=== PATIENT | female | born 1950 | race Caucasian/White ===

== ENCOUNTER 2019-01-22 11:02 | Observation (INO) | payer MEDICARE ==
[~2019-01-22] VITALS: Ht 162.6 cm; Wt 55.5 kg
[~2019-01-22 11:02] MED LIST: BABY ASPIRIN81 MG OR; CARBOPLATIN IV; CIPROFLOXACN500 MG PO; COUMADIN2.5 MG PO; COUMADIN5 MG PO; DIGOXIN0.125 MG PO; ETOPOSIDE IV; FRAGMIN SC; JANTOVEN5 MG; JANTOVEN5 MG PO; LEVEMIR FLEXPEN SC; LEVEMIR SC; LORTAB5 PO; METOPROL TAR100 MG PO; NEULASTA6 MG/0.6 M SC; PROCRIT2000 MG/ML IJ; TRADJENTA5 MG OR; ZOFRAN4 MG/TAB PO
--- NOTE | 2019-01-22 11:20 | NUR ---
PT TO ROOM WITH A STEADY GAIT.
--- NOTE | 2019-01-22 11:40 | NUR ---
ASSISTED MD WITH RECTAL EXAM. PT TOLERATED WELL. ABD SOFT, NON TENDER UPON PALPATION. BS HYPERACTIVE X 4. IV INITIATED AND LABS COLLECTED. PT AWARE OF PLAN OF CARE AND WAIT TIME. CALL COSTA WITHIN REACH.
--- NOTE | 2019-01-22 12:00 | NUR ---
PT BIN TRIPPER OPERATOR COSTA REQUESTING A WARM BLANKET. PT DENIES ANY NEEDS AT THIS TIME.
[2019-01-22 12:14] LABS: HEMATOCRIT 36.4 % (37.0-47.0); HEMOGLOBIN 12.4 g/dl (12.0-16.0); IMMATURE GRANULOCYTES 0.5 % (0.0-5.0); MEAN CELL VOLUME 94.1 fL CALC (80.0-100.0); MEAN CORPUSCULAR HGB CONC 34.1 g/L CALC (32.0-36.0); NEUT# 6.54 thou/uL (2.00-7.15); RED BLOOD COUNT 3.87 mill/uL (4.20-5.60); RED CELL DISTRI WIDTH 15.6 % (11.5-15.5)
--- NOTE | 2019-01-22 12:15 | NUR ---
+3 PITTING EDEMA NOTED TO BILATERAL LOWER EXTREMITIES AND FEET. PER PT THAT IS NORMAL FOR HER AT THIS TIME. PT ALSO REPORTS SOME WEEPING OF FLUIDS TO LEFT LOWER EXTREMITY.
[2019-01-22 12:26] LABS: ALBUMIN 3.6 g/dL (3.2-5.0); CREATININE 1.3 mg/dL (0.5-1.0); TOTAL PROTEIN 6.6 g/dL (6.3-8.2)
[2019-01-22 12:43] LABS: INTERNATIONAL NORMALIZED RATIO 1.1 RATIO (0.7-1.3); PROTHROMBIN TIME 11.5 SECONDS (9.0-12.5)
--- NOTE | 2019-01-22 13:00 | NUR ---
IV FLUIDS INFUSING WITH NO DIFFICULTY. PT READHUSTED FOR PT COMFORT. PT AWARE OF NEED FOR STOOL SAMPLE. CALL COSTA WITHIN REACH.
[2019-01-22] MEDS ORDERED: LOMOTIL2.5 MG PO (13:34)
[2019-01-22] MEDS ORDERED: BENTYL10 MG PO (13:34)
[2019-01-22] MEDS ORDERED: K-DUR/KLOR-CON20 MEQ PO (13:34)
--- NOTE | 2019-01-22 13:45 | NUR ---
PT'S BP 91/52. MD NOTIFIED. PT REQUESTED TO GO HOME. MD AT BEDSIDE AND PT AGREED TO HAVE ANOTHER BAG OF SALINE AND DISCHARGE.
--- NOTE | 2019-01-22 14:30 | NUR ---
IV FLUIDS INFUSING WITH NO DIFFICULTY, IV SITE FREE FROM REDNESS/EDEMA. BILATERAL LS REMAIN CLEAR. PT DENIES ANY NEEDS, CALL COSTA WITHIN REACH.
--- NOTE | 2019-01-22 15:25 | NUR ---
MD AT BEDSIDE TO DISCUSS RESULTS AND PT CONTINUES TO REQUEST TO GO HOME.
--- NOTE | 2019-01-22 15:30 | NUR ---
PT DRESSED WITH MINIMAL ASSIST AND PLACED IN WHEELCHAIR. BP 98/53.
--- NOTE | 2019-01-22 15:45 | NUR ---
DISCHARGE INSTRUCTIONS DISCUSSED WITH PT. PT VERBALIZED UNDERSTANDING WITH NO QUESTIONS VOICED. PT AWARE OF RX TO BE PICKED UP AT PHARMACY. UPON SIGNING DISCHARGE PAPERWORK, PT BECAME CONFUSED AND WAS UNABLE TO WRITE THE DATE AND WROTE 3 SEPERATES DATES. UPON ASKING PT QUESTIONS PT WAS ALERT TO PERSON AND PLACE AND WAS APHASIC. MD AND CHARGE NURSE AT BEDSIDE TO REEVALUATE. PT NOTIFIED OF NEED TO STAY IN ED FOR FUTHER TESTING DUE TO THE CONFUSION. PT REFUSED STATING I NEED TO GO HOME. PT PLACED BACK IN BED AND VITALS OBTAINED. PERRLA AND AT A 2. GENERALIZED WEAKNESS NOTED TO BILATERAL LOWER EXTREMITIES. PT ABLE TO IDENTIFY ALL OBJECTS BUT UPON CONVERSING SHE REMAINED APHASIC.
--- NOTE | 2019-01-22 16:20 | NUR ---
PT TO CT SCAN IN STABLE CONDITION. PT MENTATING BETTER AT THIS TIME. AND IS A&O X 3 BUT CONTINUES TO HAVE PERIODS OF CONFUSION, MD NOTIFIED.
--- NOTE | 2019-01-22 16:30 | NUR ---
Eddie CONDON RN SPOKE TO PT'S FRIEND PER PT REQUEST. SHE REPORTS THAT SHE HAS STARTED HAVING PERIODS OF CONFUSION AND THAT SHE IS NOT NORMALLY SUPPOSSED TO BE DRIVING.
--- NOTE | 2019-01-22 17:00 | NUR ---
PT RESTING IN STRETCHER WITH EYES CLOSED AND AWAKENS TO VERBAL STIMULI. PT FRIENDS AT BEDSIDE.
--- NOTE | 2019-01-22 17:30 | NUR ---
PT TOLERATING PO FLUIDS WITH NO DIFFICULTY. PT AND FRIENDS AWARE OF PENDING RESULTS AND WAIT TIME.
[2019-01-22 17:59] LABS: ALBUMIN 3.1 g/dL (3.2-5.0); BILIRUBIN, TOTAL 2.7 mg/dL (0.0-1.4); CREATININE 1.1 mg/dL (0.5-1.0); POTASSIUM 3.2 mmol/l (3.5-5.1); TOTAL PROTEIN 5.9 g/dL (6.3-8.2)
--- NOTE | 2019-01-22 18:00 | NUR ---
UNABLE TO VERIFY PT MEDICATIONS.
--- NOTE | 2019-01-22 18:15 | NUR ---
HAYDEE CURRY RN AT BEDSIDE TO DISCUSS PLAN FOR ADMISSION WITH PT AND FRIEND. PT VERBALIZED UNDERSTANDING OF NEED FOR ADMISSON AND AGREED TO STAY. PT TALKING CONVERSING WITH FRIENDS.
--- NOTE | 2019-01-22 18:50 | NUR ---
REPOT TO KAMAR PATRICK.
--- NOTE | 2019-01-22 19:00 | NUR ---
IN ROOM INTRODUCED SELF TO PT. NO C/O AT THIS TIME.
--- NOTE | 2019-01-22 20:08 | NUR ---
PT. EATING JELLO, NO S/S OF NAUSEA OR VOMITING NOTED.
--- NOTE | 2019-01-22 20:21 | NUR ---
Admission Note Report Given to: CELIO GALVIN Transported by: Wheelchair X Stretcher Transported with: X Nurse Transporter X Patent IV O2 Railroad Surveyor
--- NOTE | 2019-01-22 20:25 | NUR ---
PT. TAKEN TO GA FLOOR VIA STRETCHER.
--- NOTE | 2019-01-22 20:30 | NUR ---
PT. ARRIVED TO THE FLOOR VIA STRETCHER ACCOMPANIED BY ER NURSE; FOUNTAIN WORKER IN AT BEDSIDE;
[2019-01-22 20:40] VITALS: BP 103/64
--- NOTE | 2019-01-22 20:54 | NUR ---
ADMISSION ASSESSMENT COMPLETED; IV SITE PATENT TO RAC WITH NS BOLUS INFUSING AT THIS TIME @500MLS/HR; PT. DENIES NEEDS/PAIN AT THIS TIME; EDCUATED ON POC, CALL LIGHT, AND ROOM; VERBALIZES UNDERSTANDING; PT. HAS EDEMA NOTED TO BLE RACHEL HOSE PLACED; PT. IS A/A/O X3 WITH FORGETFULLNESS; BED ALARM ON; PT. DID VOID AND HAD A BM; UNABLE TO OBTAIN SPECIMEN DUE TO THE URINE AND STOOL MIXING; WILL ATTEMPT AGAIN WITH NEXT VOID TO OBTAIN SPECIMEN; PT DOES HAVE AN ULCER NOTED TO LEFT UPPER BUTTOCK; PHOTO OBTAINED AND PLACED IN CHART; AQUACEL FOAM DRESSING APPLIED; INSTRUCTED TO CALL FOR ANY NEEDS AND REPOSITION OFTEN; CALL LIGHT IS IN REACH. WILL CONTINUE TO MONITOR.
[2019-01-22] MEDS ORDERED: LANOXIN0.125 MG PO (21:25)
[2019-01-22] MEDS ORDERED: PROBIOTIC1 TAB PO (21:25)
[2019-01-22] MEDS ORDERED: LOPRESSOR50 M1 PO (21:25)
--- NOTE | 2019-01-22 21:30 | NUR ---
NOTIFIED DR. SANTORO OF LACTIC ACID STILL AT 2.1 AND THAT PT. IS ON 3RD BOLUS; ALSO NOTFIED HIM THAT PT. HAS ULCER NOTED TO LEFT UPPER BUTTOCK; QUESTIONED MD IF HE'D LIKE ANY FUTHER ORDERS ON THIS PT. PER MD HE DOES NOT WANT ANY MORE ORDERS FOR TONIGHT.
--- NOTE | 2019-01-22 23:34 | NUR ---
PT. C/O SLIGHT WINSTON; WARM PACK PROVIDED; DENIES FURTHER NEEDS; CALL LIGHT IS IN REACH; WILL CONTINUE TO MONITOR. BED ALARM SET.
[2019-01-22 23:35] VITALS: BP 97/65
[2019-01-23 02:16] LABS: URINE BLOOD DIPSTICK NEGATIVE (NEGATIVE); URINE COLOR YELLOW; URINE GLUCOSE - DIPSTICK NEGATIVE (NEGATIVE); URINE KETONE TRACE mg/dL (NEGATIVE); URINE LEUK ESTERASE NEGATIVE (NEGATIVE); URINE NITRITE - DIPSTICK NEGATIVE (Negative); URINE PROTEIN - DIPSTICK 30 mg/dL (NEG-TRACE); URINE SPECIFIC GRAVITY 1.025; URINE UROBILINOGEN - DIPSTICK 0.2 E.U./dL (0.2)
--- NOTE | 2019-01-23 02:19 | NUR ---
PT. RESTING IN BED WITH NO DISTRESS NOTED; DENIES NEEDS/PAIN; CALL LIGHT IS IN REACH.
[2019-01-23 02:20] LABS: URINE BILIRUBIN - DIPSTICK NEGATIVE (NEGATIVE)
[2019-01-23 02:23] LABS: C. DIFFICILE TOXIN A&B NEGATIVE (NEGATIVE)
[2019-01-23 02:28] LABS: URINE RBC 0-2 RBC/hpf (0-5); URINE WBC 0-2 WBC/hpf (0-5)
[2019-01-23 02:29] LABS: URINE BACTERIA FEW hpf; URINE SQUAMOUS EPITHELIAL CELL MODERATE EPI/hpf (0-FEW)
[2019-01-23 03:30] VITALS: BP 98/62
--- NOTE | 2019-01-23 03:53 | NUR ---
PT. RESTING IN BED WITH EYES CLOSED; NO DISTRESS NOTED; RESP EVEN AND UNLABORED; CALL LIGHT IS IN REACH; WILL CONTINUE TO MONITOR.
[2019-01-23 04:56] LABS: HEMATOCRIT 35.4 % (37.0-47.0); HEMOGLOBIN 12.1 g/dl (12.0-16.0); IMMATURE GRANULOCYTES 0.4 % (0.0-5.0); MEAN CELL VOLUME 95.7 fL CALC (80.0-100.0); MEAN CORPUSCULAR HGB 32.7 pG CALC (26.0-32.0); MEAN CORPUSCULAR HGB CONC 34.2 g/L CALC (32.0-36.0); NEUT# 8.33 thou/uL (2.00-7.15); RED BLOOD COUNT 3.7 mill/uL (4.20-5.60); RED CELL DISTRI WIDTH 15.6 % (11.5-15.5)
[2019-01-23 05:24] LABS: ALKALINE PHOSPHATASE 132 u/l (38-126); AMYLASE 40 u/l (30-110); ANION GAP 17 (6-22 (CALC)); BILIRUBIN, TOTAL 3.1 mg/dL (0.0-1.4); BUN 13 mg/dL (8-23); BUN/CREATININE RATIO 13 (12-20 (CALC)); CARBON DIOXIDE 26 mmol/l (22-30); CHLORIDE 92 mmol/l (95-108); CREATININE 0.9 mg/dL (0.5-1.0); GFR > 60 ML/MIN (>=60 (CALC)); GFR FOR AFR.AMER. > 60 ML/MIN (>=60 (CALC)); LIPASE 87 u/l (23-300); MAGNESIUM 2.2 mg/dL (1.6-2.3); POTASSIUM 3.1 mmol/l (3.5-5.1); SGOT/AST 32 u/l (9-36); SODIUM 132 mmol/l (137-146); TOTAL PROTEIN 5.8 g/dL (6.3-8.2)
--- NOTE | 2019-01-23 08:09 | NUR ---
MARTYFIT CHANGE REPORT, PT AWAKE AND ALERT RESTING IN BED, NO C/O DISCOMFORT AT THIS TIME ONLY WANTS TO GO TO BR, IVF INFUSING, ASSISTED TO BSC, CALL COSTA IN REACH.
[2019-01-23 08:28] VITALS: BP 98/60
--- NOTE | 2019-01-23 12:30 | NUR ---
ASSISTED TO BSC AND BACK TO BED, MEDICAL TEAM ROUNDED AND DISCUSSED PLAN OF CARE, PT STATED UNDERSTANDING.
[2019-01-23 15:35] VITALS: BP 104/66
--- NOTE | 2019-01-23 16:00 | NUR ---
ASSISTED TO BCS, GAVE CLIFF-CARE AND ASSISTED BACK TO BED. VERY WEAK AND HAVING FREQUENT EPISODES OF INCONTINENT DIARRHEA. HOSPICE WAS CONSULTED TO EVALUATE PT, TATY FROM HOSPICE CALLED, SPOKE TO PT'S SON GLORIA AND WILL HAVE MEETING WITH HIM @ 1100 TOMORROW (01/24/19) WILL CONTINUE TO MONITOR.
[2019-01-23 19:05] VITALS: BP 100/66
--- NOTE | 2019-01-23 19:10 | NUR ---
PT. SITTING UP IN BED WITH NO DISTRESS NOTED. ASSESSMENT COMPLETED; DENIES NEEDS/PAIN; IV SITE PATENT AND ORDERED IVF INFUSING; SON IS IN AT BEDSIDE TO STAY THE NIGHT; DENIES NEEDS AT THIS TIME; PO FLUIDS ENCOURAGED; CALL LIGHT IS IN REACH; WILL CONTINUE TO MONITOR. BED ALARM ON;
--- NOTE | 2019-01-23 20:45 | NUR ---
SCHEDULED PROBIOTIC GIVEN ALONG WITH A PUDDING; DENIES NEEDS/PAIN; EDUCATED DONE ON INCENTIVE SPIROMETER AND ENCOURAGED TO USE; BED ALARM IS SET; SON IS AT BEDSIDE AND TO STAY THE NIGHT; CALL LIGHT IS IN REACH;
--- NOTE | 2019-01-24 | NUR ---
PT. RESTING IN BED WITH EYES CLOSED; RESP EVEN AND UNLABORED; SON AT BEDSIDE; SLEEPING; CALL LIGHT IS IN REACH; BED ALARM SET.
--- NOTE | 2019-01-24 03:30 | NUR ---
PT. RESTING IN BED WITH EYES CLOSED; RESP EVEN AND UNLABORED; CALL LIGHT IS IN REACH.
[2019-01-24 04:30] VITALS: BP 104/58
--- NOTE | 2019-01-24 05:00 | NUR ---
PT. VOIDED 200MLS AND BLADDER SCANNED AT THIS TIME SHOWING 450MLS; NOTIFIED MD LABORER/GRADE CHECK AND PER MD JUST CONTINUE TO MONITOR;MD DOES NOT WANT CATHETER PLACED AT THIS TIME;
[2019-01-24 05:10] LABS: HEMATOCRIT 32.6 % (37.0-47.0); IMMATURE GRANULOCYTES 0.6 % (0.0-5.0); MEAN CELL VOLUME 97.6 fL CALC (80.0-100.0); MEAN CORPUSCULAR HGB 32.9 pG CALC (26.0-32.0); MEAN CORPUSCULAR HGB CONC 33.7 g/L CALC (32.0-36.0); NEUT# 7.2 thou/uL (2.00-7.15); RED BLOOD COUNT 3.34 mill/uL (4.20-5.60)
[2019-01-24 05:32] LABS: ANION GAP 15 (6-22 (CALC)); BUN 19 mg/dL (8-23); BUN/CREATININE RATIO 21 (12-20 (CALC)); CARBON DIOXIDE 25 mmol/l (22-30); CHLORIDE 94 mmol/l (95-108); CREATININE 0.9 mg/dL (0.5-1.0); GFR > 60 ML/MIN (>=60 (CALC)); GFR FOR AFR.AMER. > 60 ML/MIN (>=60 (CALC)); MAGNESIUM 2.2 mg/dL (1.6-2.3); SODIUM 130 mmol/l (137-146)
[2019-01-24 05:40] LABS: POTASSIUM 3.8 mmol/l (3.5-5.1)
--- NOTE | 2019-01-24 06:55 | NUR ---
BEDSIDE REPORT RECEIVED. PATIENT IN HIGH FOWLERS POSITION, PT AWAKE. SON AT BEDSIDE ASLEEP. PT DENIES ANY NEEDS AT THIS TIME. CALL LIGHT WITHIN REACH.
--- NOTE | 2019-01-24 08:20 | NUR ---
PT FINISHED BREAKFAST, TOLERATED WELL. AM MEDS AND ASSESSMENT COMPLETE AT THIS TIME. PT ALERT. SON AT BEDSIDE. PEEWEE BREATH SOUNDS DIMINISHED. SATS 89% DENIES SHORTNESS OF BREATH. O2 AT 2L VIA NC. ABDOMEN FIRM AND DISTENDED. BOWEL SOUNDS ACTIVE. PEEWEE LOWER EXTREMITIES WITH 2+ PITTING EDEMA. DISCUSSED PLAN OF CARE. SON REQUESTING MOTHER TO NOT HAVE ANY MEDICATIONS WITH SEDATIVE EFFECTS, WOULD LIKE HER TO BE ALERT FOR HOSPICE MEETING TODAY AT 11. PATIENT DENIES ANY PAIN.
--- NOTE | 2019-01-24 08:42 | NUR ---
ELLIS CLEMENT IN ROOM TO ASSIST PATIENT WITH SHOWER AND LINEN CHANGE.
[2019-01-24 09:00] VITALS: BP 105/62
--- NOTE | 2019-01-24 09:28 | NUR ---
ONCOLOGY PHYSICIAN TORSTEN AT BEDSIDE.
--- NOTE | 2019-01-24 10:19 | NUR ---
PT UP TO BSC, VOIDED SCANT AMOUNT OF URINE. ASSISTED BACK TO RECLINER CHAIR. FRESH DUODERM PLACED TO COCCYX.
--- NOTE | 2019-01-24 11:34 | NUR ---
HOSPICE NURSE KAMAR CARVALHO IN TO SEE PATIENT.
--- NOTE | 2019-01-24 14:45 | NUR ---
PT SITTING IN RECLINER CHAIR WITH EYES CLOSED. AWAKENS SPONTANEOUSLY. DENIES ANY NEEDS.
[2019-01-24 15:20] VITALS: BP 114/73
--- NOTE | 2019-01-24 16:17 | NUR ---
PER CM TORSTEN, PT AND SON HAVE DECIDED AT THIS TIME THEY WILL TRY HOSPICE AT HOME.
--- NOTE | 2019-01-24 17:44 | NUR ---
PT AWAKE, SET UP WITH DINNER TRAY. DENIES URGE TO VOID AT THIS TIME. DENIES ANY NEEDS.
--- NOTE | 2019-01-24 19:00 | NUR ---
PT. RESTING IN BED WITH NO DISTRESS NOTED; REPOSITIONED ONTO LEFT SIDE; CALL LIGHT ISIN REACH; WILL CONTINUE TO MONITOR.
[2019-01-24 19:10] VITALS: BP 105/65
--- NOTE | 2019-01-24 20:10 | NUR ---
PT. SITTING UP IN BED WITH NO RESP DISTRESS NOTED; ASSESSMENT COMPLETED; IV SITE PATENT AND INFUSING ORDERED NS; UPDATED PT. AND FAMILY ON POC; VERBALIZES UNDERSTANDING; SNACK PROVIDED; WILL GET PT. OOB TO VOID SHORTLY AND THEN BLADDER SCAN FOR PVR; ENCOURAGED TO CALL FOR ANY NEEDS; CALL LIGHT IS IN REACH; WILL CONTINUE TO MONITOR.
--- NOTE | 2019-01-24 21:24 | NUR ---
PT. VOIDED 100MLS OF CLEAR YELLOW URINE; BLADDER SCANNED BY KAMAR NORTON AND PVR READING 794MLS; PT. IS WITH ASCITES; WILL PLACE CATHETER PER ORDER;
--- NOTE | 2019-01-24 22:00 | NUR ---
16 GEORGIAN VELAZQUEZ CATHETER PLACED BY KAMAR NORTON BY STERILE TECHNIQUE WITH PRECEPTOR LAURIE AKHTAR, AT BEDSIDE WELL; ONLY 30MLS OF URINE NOTED DRAINING POST INSERTION; URINE IS CLEAR AND YELLOW; WILL CONTINUE TO MONITOR.
--- NOTE | 2019-01-25 00:05 | NUR ---
PT. SITTING UP IN BED WITH NO DISTRESS NOTED; DENIES NEEDS/PAIN; ENCOURAGED TO CALL FOR ANY NEEDS; CALL LIGHT IS IN REACH; WILL CONTINUE TO MONITOR.
--- NOTE | 2019-01-25 02:30 | NUR ---
VELAZQUEZ CATHETER NOTED TO BE LEAKING; PAD WET WITH URINE AND APPEARS THAT URINE IS COMING OUT AROUND CATHETER; REMOVED AT THIS TIME; BLADDER SCANNED AT THIS TIME AND READING >999MLS; UNSURE IF THIS IS ACCURATE FROM THE BLADDER OR IF IT IS THE ASCITES READING ON THE SCAN; INSERTED A NEW #16 DANISH VELAZQUEZ CATHETER AND ONLY A SMALL AMOUNT OF URINE NOTED TO TUBING ON INITIATING VELAZQUEZ CATHETER; WILL CONTINUE TO MONITOR OUTPUT; SON REMAINS AT BEDSIDE; BED ALARM SET; CALL LIGHT IS IN REACH; WILL CONTINUE TO MONITOR.
--- NOTE | 2019-01-25 02:55 | NUR ---
PT. RERPORTING PAIN TO RIGHT SIDE OF NECK AND CLIFF AREA OFFERED ORDERED PRN ROXICODONE OR PRN TYLENOL; PER PT. SHE WOULD LIKE TYLENOL; CRUSHED AND GIVEN IN PUDDING PER PTS REQUEST; PO FLUIDS OFFERED. ENCOURAGED TO CALL FOR ANY NEEDS; CALL LIGHT IS IN REACH.
[2019-01-25 04:05] VITALS: BP 107/60
--- NOTE | 2019-01-25 04:15 | NUR ---
PHOTO OBTAINED OF ULCER NOTED TO LEFT UPPER BUTTOCK AND NEW DUODERM PLACED; NOTED THAT WHEN PT. REPOSITIONS ON SIDE MORE URINE WILL RELEASE FROM CATHETER INTO TUBING; URINE NOTED TO CLIFF PAD UNDERNEATH PT; WILL CONTINUE TO MONITOR. SON REMAINS AT BEDSIDE; CALL LIGHT IS IN REACH.
[2019-01-25 06:18] LABS: HEMATOCRIT 35.1 % (37.0-47.0); HEMOGLOBIN 11.7 g/dl (12.0-16.0); IMMATURE GRANULOCYTES 0.8 % (0.0-5.0); MEAN CELL VOLUME 97.8 fL CALC (80.0-100.0); MEAN CORPUSCULAR HGB 32.6 pG CALC (26.0-32.0); MEAN CORPUSCULAR HGB CONC 33.3 g/L CALC (32.0-36.0); NEUT# 7.1 thou/uL (2.00-7.15); RED BLOOD COUNT 3.59 mill/uL (4.20-5.60); RED CELL DISTRI WIDTH 16.1 % (11.5-15.5)
[2019-01-25 06:36] LABS: ANION GAP 12 (6-22 (CALC)); BUN 17 mg/dL (8-23); BUN/CREATININE RATIO 22 (12-20 (CALC)); CARBON DIOXIDE 27 mmol/l (22-30); CHLORIDE 96 mmol/l (95-108); CREATININE 0.8 mg/dL (0.5-1.0); GFR > 60 ML/MIN (>=60 (CALC)); GFR FOR AFR.AMER. > 60 ML/MIN (>=60 (CALC)); POTASSIUM 3.7 mmol/l (3.5-5.1); SODIUM 131 mmol/l (137-146)
--- NOTE | 2019-01-25 07:30 | NUR ---
ASSESSMENT COMPLETED; REPOSITION PT ON HER BACK; RESP EVEN AND UNLABORED 02@3L NC; A/O; IV SITE PATENT; LUNGS DIMINISHED; PULSES WEAK; ABD FIRM DISTENDED; HYPO ACTIVE BOWEL SOUND; ARMS ADAMATOUS; +2 EDEMA PEEWEE LE; VELAZQUEZ PATENT CLEAR, ALBER URINE; SON AT BEDSIDE; PT VOICE NO CONCERNS; CALL COSTA IN REACH.
[2019-01-25 07:31] VITALS: BP 100/59
--- NOTE | 2019-01-25 09:50 | NUR ---
CIARA/US CALLED STATED [facility] & INR NEEDS TO BE DRAWN.
[2019-01-25 10:00] VITALS: BP 100/59
[2019-01-25 10:18] LABS: INTERNATIONAL NORMALIZED RATIO 1.1 RATIO (0.7-1.3); PROTHROMBIN TIME 11.4 SECONDS (9.0-12.5)
--- NOTE | 2019-01-25 10:59 | NUR ---
PT GOING DOWN TO U/S VIA W/C, 02@3L HONEY, CONTRERAS PASS, ACCOMPANIED BY SPINNING BATH PERSON AND INHALATION THERAPY TEACHER; MARCUS ROMERO.
--- NOTE | 2019-01-25 11:31 | NUR ---
PT RETURN TO FLOOR VIA W/C ACCOMPANIED BY NURSING STAFF IN STABLE CONDITION;
--- NOTE | 2019-01-25 11:48 | NUR ---
HOSPICE AT BEDSIDE; PT SITTING UP IN RECLINER, SON PRESENT; VELAZQUEZ PATENT; RESP EVEN AND UNLABORED; WILL CONTINUE TO MONITOR.
--- NOTE | 2019-01-25 12:42 | NUR ---
DR SANTORO AT BEDSIDE TO DISCUSS POC.
[2019-01-25] MEDS ORDERED: OXYCODONE HCL5 MG PO (13:31)
[2019-01-25] MEDS ORDERED: ONDANSETRON4 MG/2 ML PO (13:31)
--- NOTE | 2019-01-25 15:03 | NUR ---
ASSISTED PT BACK TO BED, TOLERATED WELL; IV REMOVED, CATH INTACT; VELAZQUEZ D/C, 150CC CLEAR ALBER URINE; DC INSTRUCTIONS ALONG WITH PRESCRIPTION EXPLAINED TO PT; PT STATED HER SON WILL SIGN DC PAPERS; SON WENT HOME TO RECEIVE 02; CALL COSTA IN REACH.
--- NOTE | 2019-01-25 15:40 | NUR ---
Discharge instructions given. Patient verbalizes understanding of same. Discharged in stable condition via Wheelchair to Home with family. All belongings sent with pt.
== END 2019-01-25 15:41 | disposition hospice, home (50) ==
LOC: ED 11:02 → ED-I 18:00 → ED 18:43 → MS2 18:53
PROVIDERS: Emergency Medicine; Nurse Practitioner Family; ADMIT Internal Medicine Nephrology; ATTEND Internal Medicine Nephrology
PROC: 0W993ZZ Drainage of Right Pleural Cavity, Percutaneous Approach (ICD-10-PCS; principal; 2019-01-25)
PROC: BB4BZZZ Ultrasonography of Pleura (ICD-10-PCS; 2019-01-25)
DX: E87.1 Hypo-osmolality and hyponatremia (principal); E87.6 Hypokalemia; C7A.8 Other malignant neuroendocrine tumors; C7B.8 Other secondary neuroendocrine tumors; N17.9 Acute kidney failure, unspecified; J90 Pleural effusion, not elsewhere classified; R18.8 Other ascites; I12.9 Hypertensive chronic kidney disease with stage 1 through stage 4 chronic kidney disease, or unspecified chronic kidney disease; E11.22 Type 2 diabetes mellitus with diabetic chronic kidney disease; N18.9 Chronic kidney disease, unspecified; I48.0 Paroxysmal atrial fibrillation; I95.9 Hypotension, unspecified; R19.7 Diarrhea, unspecified; K74.60 Unspecified cirrhosis of liver; M54.5 Low back pain; M54.2 Cervicalgia; K92.1 Melena; K86.9 Disease of pancreas, unspecified; Z51.5 Encounter for palliative care; E86.0 Dehydration
CPT/HCPCS: G0378